=== PATIENT | male | born 1980 | race Caucasian/White ===

== ENCOUNTER 2017-05-12 18:09 | Emergency (ER) | payer OTHER ==
[2017-05-12] MEDS ORDERED: Acetaminophen 500 MG TAB ONE (18:51)
== END 2017-05-12 18:52 | disposition home or self-care (01) ==
LOC: ERS 18:09
DX: S40.021A Contusion of right upper arm, initial encounter (principal); S80.811A Abrasion, right lower leg, initial encounter; E11.9 Type 2 diabetes mellitus without complications; I10 Essential (primary) hypertension; E66.9 Obesity, unspecified; Z79.84 Long term (current) use of oral hypoglycemic drugs; Z79.899 Other long term (current) drug therapy; W17.89XA Other fall from one level to another, initial encounter
CPT/HCPCS: 99283

== ENCOUNTER 2017-06-26 20:42 | Emergency (ER) | payer OTHER, SELFPAY ==
--- NOTE | 2017-06-26 22:05 | RAD ---
PORTABLE UPRIGHT FRONTAL CHEST RADIOGRAPH 06/26/17 COMPARISON: 09/07/16 HISTORY: Cough, sore throat and ear pain. FINDINGS: There is mild pulmonary vascular prominence. There is no pneumothorax, pleural fluid, focal consolida tion, or alveolar edema. IMPRESSION: No focal consolidation or alveolar edema. POS: [facility]
== END 2017-06-26 22:40 | disposition home or self-care (01) ==
LOC: ERS 20:42
DX: J18.9 Pneumonia, unspecified organism (principal); E11.9 Type 2 diabetes mellitus without complications; I10 Essential (primary) hypertension; E66.9 Obesity, unspecified; Z79.84 Long term (current) use of oral hypoglycemic drugs
CPT/HCPCS: 71010

== ENCOUNTER 2017-08-12 19:22 | Emergency (ER) | payer SELFPAY | END 2017-08-12 20:36 | disposition left against medical advice (07) | LOC: ERS 19:22 | DX: Z53.21 Procedure and treatment not carried out due to patient leaving prior to being seen by health care provider (principal) | CPT/HCPCS: 36416 ==

== ENCOUNTER 2018-03-29 14:18 | Outpatient (CLI) | payer OTHER ==
[2018-03-29 15:43] LABS: Hemoglobin 12.8 g/dL (14.0-18.0); Mean Corpuscular HGB CONC 34.2 g/dL (32.0-36.0); Mean Corpuscular Hemoglobin 29.8 pg (27.0-31.0); Mean Corpuscular Volume 87.1 fL (78.0-98.0); Mean Platelet Volume 8.1 fL (7.4-10.4); Platelet Count 269 thou/uL (130-400); RBC Distribution Width 12.5 % (11.5-14.5); Red Blood Cell (RBC) Count 4.31 mill/uL (4.70-6.10); White Blood Cell (WBC) Count 7.7 thou/uL (4.8-10.8)
[2018-03-29 16:09] LABS: Anion Gap 9 mmol/L (10-20); BUN (Urea Nitrogen) 14 mg/dL (8.9-20.6); Calc. Creatinine Clearance 0 mL/min (70-130); Calcium 9.3 mg/dL (7.8-10.44); Carbon Dioxide 28 mmol/L (22-29); Chloride 106 mmol/L (98-107); Estimated GFR-MDRD Greater than 90; Glucose 151 mg/dL (70-105); Sodium 139 mmol/L (136-145)
--- NOTE | 2018-03-30 17:43 | EKG ---
Test Reason : Blood Pressure : / mmHG Vent. Rate : 075 BPM Atrial Rate : 075 BPM P-R Int : 144 ms QRS Dur : 086 ms QT Int : 370 ms P-R-T Axes : 039 075 024 degrees QTc Int : 413 ms Normal sinus rhythm Normal ECG When compared with ECG of 07-SEP-2016 16:11, (Unconfirmed) No significant change was found Confirmed by DR. Ze DRAKE ([id number]) on 03/30/2018 5:42:52 PM Referred By: RAVEN Confirmed By:DR. Ze DRAKE
== END 2018-03-29 14:19 | disposition home or self-care (01) ==
LOC: LABBT 14:18
PROVIDERS: ATTEND Orthopaedic Surgery
DX: Z01.818 Encounter for other preprocedural examination (principal); S43.432A Superior glenoid labrum lesion of left shoulder, initial encounter
CPT/HCPCS: 80048; 85027; 93005; 93010

== ENCOUNTER 2018-03-30 12:39 | Day surgery (SDC) | payer OTHER ==
[2018-03-29 14:42] VITALS: BMI 53.3
[2018-03-30] MEDS ORDERED: CEFAZOLIN/Water 2 GM/20 ML SYRINGE ONE (13:06)
[2018-03-30] MEDS ORDERED: Fentanyl 100 MCG/2 ML VIAL ONE ×7 (13:28→17:40)
[2018-03-30] MEDS ORDERED: Midazolam HCl 2 mg/2 ml Vial ONE ×2 (13:28→16:42)
[2018-03-30] MEDS ORDERED: Bupivacaine/Epinephrine 0.25% 30 ML VIAL ONE (13:50)
[2018-03-30] MEDS ORDERED: SUGAMMADEX SODIUM 500 MG/5 ML VIAL ONE (16:40)
[2018-03-30] MEDS ORDERED: SUGAMMADEX SODIUM 200 MG/2 ML VIAL ONE (16:40)
[2018-03-30] MEDS ORDERED: Labetalol HCl 100 MG/20 ML VIAL ONE (17:02)
[2018-03-30] MEDS ORDERED: HYDROcodone/Acetaminophen 5/325 mg Tablet ONE (18:06)
--- NOTE | 2018-03-30 21:14 | OP ---
DATE OF OPERATION: 03/30/2018 PREOPERATIVE DIAGNOSES: 1. Tear of the posterior labrum with extension into the posterior superior aspect of the labrum. 2. Impingement syndrome of the left shoulder. POSTOPERATIVE DIAGNOSES: 1. Tear of the posterior labrum with extension into the posterior superior aspect of the labrum. 2. Impingement syndrome of the left shoulder. PROCEDURE: Arthroscopy of the left shoulder with repair of the posterior labrum and subacromial deco mpression. SURGEON: Dmitri Tong M.D. ANESTHESIA: General. TECHNIQUE: The patient was given preoperative IV antibiotics, taken to the operating room, placed in supine position. Satisfactory general anesthesia was performed. Patient was then placed in the rig ht lateral decubitus position. All bony prominences were well-padded. The left upper extremity was placed in 15 pounds of traction. Left shoulder and upper extremity were sterilely prepped and draped in usual fashion. Shoulder was scoped through the posterior portal with anterior portal also has be en developed. The shoulder was scoped and the shoulder joint had some fraying of the posterior labru m. The articular cartilage in the shoulder joint looked very good. Shaver was used to remove some o f the fraying of the labrum. The anterior labrum was intact. The posterior-superior aspect of the l abrum had detached from the labrum, and using the arthroscope through the anterior portal, the printing worker supervisor ior portal was used to repair the posterior and posterior-superior labrum using three 2.9 Arthrex anc hors with #2 FiberWire. This provided a good repair of the posterior-superior labrum. The attention was then placed into the subacromial space, which was cleaned up and debrided with the shaver and th en soft tissue was removed from the undersurface of the acromion and the trace was used to smooth down the undersurface of the acromion, particularly on the anterior and lateral aspect of the acromion. During the procedure, all the debris was irrigated out of the shoulder joint and the subacromial spac e. The instruments removed, the portals were closed with 3-0 Rapide and sterile dressing was applied . The patient was taken out of traction. He was awakened, extubated, and transferred to the recover y room in stable condition. ESTIMATED BLOOD LOSS: Minimal. COMPLICATIONS: None. DISCHARGE MEDICATIONS: [place] 10 one every 6 hours as needed for pain, #50 with no refills.
== END 2018-03-30 18:50 | disposition home or self-care (01) ==
LOC: SDC 12:39
PROVIDERS: ATTEND Orthopaedic Surgery
PROC: 0MM24ZZ Reattachment of Left Shoulder Bursa and Ligament, Percutaneous Endoscopic Approach (ICD-10-PCS; principal; 2018-03-30)
PROC: 0RBK4ZZ Excision of Left Shoulder Joint, Percutaneous Endoscopic Approach (ICD-10-PCS; principal; 2018-03-30)
DX: S43.432A Superior glenoid labrum lesion of left shoulder, initial encounter (principal); M75.42 Impingement syndrome of left shoulder; E11.9 Type 2 diabetes mellitus without complications; Z79.84 Long term (current) use of oral hypoglycemic drugs; Z79.899 Other long term (current) drug therapy
CPT/HCPCS: 96374; 96375; 96376; C1713; J2250; J3010

== ENCOUNTER 2020-07-12 17:16 | Emergency (ER) | payer OTHER, SELFPAY ==
[2020-07-12 18:24] LABS: Bilirubin Negative (Negative); Blood, Urine Negative (Negative); Clarity Clear (Clear); Glucose, Urine (Dipstick) 300 mg/dL (Negative); Ketone, Urine Negative (Negative); Leukocyte Negative Leu/uL (Negative); Nitrite Negative (Negative); Protein, Urine (Dipstick) Negative (Neg-Trace); Specific Gravity, Urine 1.005 (1.002-1.036); Urobilinogen Normal mg/dL (Less than 2); pH, Urine 5.5 (5.0-9.0)
[2020-07-12 18:50] LABS: #Basophils 0.1 thou/uL (0.0-0.2); #Eosinphils 0.1 thou/uL (0.0-0.7); #Lymphocytes 1.8 thou/uL (1.20-3.40); #Monocytes 0.4 thou/uL (0.11-0.59); #Neutrophils 8.8 thou/uL (1.40-6.50); %Basophils 0.6 % (0.0-1.0); %Eosinophils 0.6 % (0.0-10.0); %Monocytes 3.3 % (0.0-10.0); %Neutrophils 79.4 % (42.0-75.0); Mean Corpuscular HGB CONC 34.1 g/dL (32.0-36.0); Mean Corpuscular Hemoglobin 28.3 pg (27.0-31.0); Mean Platelet Volume 7.9 fL (7.4-10.4); Platelet Count 307 thou/uL (130-400); RBC Distribution Width 12.6 % (11.5-14.5); Red Blood Cell (RBC) Count 4.94 mill/uL (4.70-6.10); White Blood Cell (WBC) Count 11.1 thou/uL (4.8-10.8)
--- NOTE | 2020-07-12 19:03 | RAD ---
RADIOGRAPH CHEST 1 VIEW: DATE: 07/12/2020 HISTORY: 39-year-old male with dyspnea FINDINGS: There are no airspace densities, pulmonary edema, pneumothorax, or cardiomegaly. The lateral costophr enic angles are sharp. IMPRESSION: No acute cardiopulmonary findings.
[2020-07-12 19:11] LABS: ALT (SGPT) 28 U/L (8-55); AST (SGOT) 17 U/L (5-34); Albumin 4.1 g/dL (3.5-5.0); Alkaline Phosphatase 123 U/L (40-110); Anion Gap 17 mmol/L (10-20); BUN (Urea Nitrogen) 11 mg/dL (8.9-20.6); Bilirubin, Total 0.3 mg/dL (0.2-1.2); Calc. Creatinine Clearance 0 mL/min (70-130); Calcium 9.6 mg/dL (7.8-10.44); Carbon Dioxide 23 mmol/L (22-29); Chloride 99 mmol/L (98-107); Globulin 3.9 g/dL (2.4-3.5); Glucose 236 mg/dL (70-105); Potassium 4.1 mmol/L (3.5-5.1); Sodium 135 mmol/L (136-145)
== END 2020-07-12 19:59 | disposition home or self-care (01) ==
LOC: ERS 17:16
DX: F41.0 Panic disorder [episodic paroxysmal anxiety] (principal); E11.9 Type 2 diabetes mellitus without complications; I10 Essential (primary) hypertension; E66.9 Obesity, unspecified; Z79.84 Long term (current) use of oral hypoglycemic drugs; Z79.899 Other long term (current) drug therapy
CPT/HCPCS: 36415; 36416; 71045; 80053; 81003; 82010; 85025; 93005

== ENCOUNTER 2021-05-08 10:27 | Emergency (ER) | payer SELFPAY ==
[2021-05-08 11:30] LABS: #Basophils 0.1 thou/uL (0.0-0.2); #Eosinphils 0.2 thou/uL (0.0-0.7); #Lymphocytes 1.3 thou/uL (1.20-3.40); #Monocytes 0.5 thou/uL (0.11-0.59); #Neutrophils 8.1 thou/uL (1.40-6.50); %Basophils 0.6 % (0.0-1.0); %Eosinophils 1.7 % (0.0-10.0); %Lymphocytes 12.7 % (21.0-51.0); %Monocytes 4.8 % (0.0-10.0); %Neutrophils 80.2 % (42.0-75.0); Hemoglobin 13.3 g/dL (14.0-18.0); Mean Corpuscular HGB CONC 33.6 g/dL (32.0-36.0); Mean Corpuscular Hemoglobin 28.1 pg (27.0-31.0); Mean Corpuscular Volume 83.6 fL (78.0-98.0); Platelet Count 269 thou/uL (130-400); RBC Distribution Width 12.7 % (11.5-14.5); Red Blood Cell (RBC) Count 4.75 mill/uL (4.70-6.10)
[2021-05-08 11:59] LABS: ALT (SGPT) 27 U/L (8-55); AST (SGOT) 16 U/L (5-34); Albumin 3.9 g/dL (3.5-5.0); Alkaline Phosphatase 98 U/L (40-110); Anion Gap 15 mmol/L (10-20); BUN (Urea Nitrogen) 12 mg/dL (8.9-20.6); Bilirubin, Total 0.4 mg/dL (0.2-1.2); Calc. Creatinine Clearance 0 mL/min (70-130); Calcium 9.7 mg/dL (7.8-10.44); Carbon Dioxide 28 mmol/L (22-29); Chloride 95 mmol/L (98-107); Globulin 3.3 g/dL (2.4-3.5); Glucose 345 mg/dL (70-105); Potassium 4.5 mmol/L (3.5-5.1); Protein, Total 7.2 g/dL (6.0-8.3); Sodium 133 mmol/L (136-145)
[2021-05-08 22:21] LABS: SARS-CoV-2 PCR by NAA Not Detected (NotDetected)
== END 2021-05-08 13:37 | disposition home or self-care (01) ==
LOC: ERS 10:27
DX: B34.9 Viral infection, unspecified (principal); E11.9 Type 2 diabetes mellitus without complications; I10 Essential (primary) hypertension; E66.9 Obesity, unspecified; Z20.822 Contact with and (suspected) exposure to COVID-19; Z79.84 Long term (current) use of oral hypoglycemic drugs; Z79.899 Other long term (current) drug therapy
CPT/HCPCS: 36415; 71045; 80053; 83880; 84484; 85025; 93005; U0003; U0005

== ENCOUNTER 2022-05-22 16:53 | Emergency (ER) | payer SELFPAY ==
[2022-05-22] MEDS ORDERED: Ibuprofen 200 MG TAB ONE (17:26)
[2022-05-22 17:48] LABS: #Basophils 0.1 thou/uL (0.0-0.2); #Eosinphils 0.1 thou/uL (0.0-0.7); #Lymphocytes 1.1 thou/uL (1.20-3.40); #Monocytes 0.4 thou/uL (0.11-0.59); #Neutrophils 7.2 thou/uL (1.40-6.50); %Basophils 0.6 % (0.0-1.0); %Eosinophils 1.3 % (0.0-10.0); %Lymphocytes 12.1 % (21.0-51.0); %Monocytes 4.6 % (0.0-10.0); %Neutrophils 81.5 % (42.0-75.0); Hemoglobin 12.1 g/dL (14.0-18.0); Mean Corpuscular HGB CONC 32.3 g/dL (32.0-36.0); Mean Corpuscular Hemoglobin 27.3 pg (27.0-31.0); Mean Corpuscular Volume 84.6 fl (78.0-98.0); Mean Platelet Volume 7.7 fL (7.4-10.4); Platelet Count 264 thou/uL (130-400); RBC Distribution Width 13.6 % (11.5-14.5); Red Blood Cell (RBC) Count 4.41 mill/uL (4.70-6.10); White Blood Cell (WBC) Count 8.9 thou/uL (4.8-10.8)
[2022-05-22 18:08] LABS: ALT (SGPT) 21 U/L (8-55); AST (SGOT) 16 U/L (5-34); Albumin 3.7 g/dL (3.5-5.0); Alkaline Phosphatase 90 U/L (40-110); Anion Gap 11 mmol/L (10-20); BUN (Urea Nitrogen) 14 mg/dL (8.9-20.6); Bilirubin, Total 0.4 mg/dL (0.2-1.2); Calc. Creatinine Clearance 0 mL/min (70-130); Calcium 8.9 mg/dL (7.8-10.44); Carbon Dioxide 26 mmol/L (22-29); Chloride 104 mmol/L (98-107); Estimated GFR 116; Globulin 3.3 g/dL (2.4-3.5); Glucose 241 mg/dL (70-105); Potassium 4.4 mmol/L (3.5-5.1); Sodium 137 mmol/L (136-145)
[2022-05-22] MEDS ORDERED: hydrALAZINE 20 MG/ML VIAL ONE (18:39)
[2022-05-22 18:49] LABS: Bacteria/HPF None Seen HPF (None Seen); Bilirubin Negative (Negative); Blood, Urine 2+ (Negative); Clarity Clear (Clear); Glucose, Urine (Dipstick) 200 mg/dL (Negative); Ketone, Urine Negative (Negative); Leukocyte Negative Leu/uL (Negative); Nitrite Negative (Negative); Protein, Urine (Dipstick) 70 mg/dL (Neg-Trace); Squamous Epithelial None Seen HPF (0-3); Urobilinogen Normal mg/dL (Less than 2); WBC/HPF 0-3 HPF (0-3); pH, Urine 5.5 (5.0-9.0)
[2022-05-22 18:51] LABS: Sperm/HPF 1+ HPF (None Seen)
== END 2022-05-22 19:38 | disposition home or self-care (01) ==
LOC: ERS 16:53
DX: S80.812A Abrasion, left lower leg, initial encounter (principal); S30.811A Abrasion of abdominal wall, initial encounter; E11.9 Type 2 diabetes mellitus without complications; I10 Essential (primary) hypertension; E66.9 Obesity, unspecified; W13.3XXA Fall through floor, initial encounter; Y92.009 Unspecified place in unspecified non-institutional (private) residence as the place of occurrence of the external cause
CPT/HCPCS: 36415; 36416; 80053; 81003; 81015; 85025; 99283; J0360

== ENCOUNTER 2023-08-07 16:06 | Outpatient (CLI) | payer OTHER | END 2023-08-07 16:07 | disposition home or self-care (01) | LOC: BICRAD 16:06 | PROVIDERS: ATTEND Family Medicine | DX: J18.9 Pneumonia, unspecified organism (principal); J32.4 Chronic pansinusitis; R91.8 Other nonspecific abnormal finding of lung field | CPT/HCPCS: 71046 ==